=== PATIENT | female | born 1960 | race Caucasian/White ===

== ENCOUNTER 2016-06-17 10:01 | Emergency (ER) | payer OTHER ==
[~2016-06-17] VITALS: Ht 162.6 cm; Wt 49.9 kg
[~2016-06-17 10:01] MED LIST: CLEOCIN HCL300 M1 PO; PERCOCET 5-3251 EACH PO
[2016-06-17 10:09] VITALS: BP 125/78
--- NOTE | 2016-06-17 10:40 | ED SKIN/ALLERGY COMPLAINT ---
History of Present Illness General Chief Complaint: Skin Rash/ Abcess Stated Complaint: RASH Source: patient Exam Limitations: no limitations Vital Signs & Intake/Output Vital Signs & Intake/Output Vital Signs Date Time Temp Pulse Resp B/P Pulse O2 O2 Flow FiO2 Ox Delivery Rate 06/17 1009 97.0 91 20 125/78 99 Room Air Room Air Allergies Coded Allergies: MDX - Penicillin (HIVES, THROAT TIGHTNESS 11/13/15) Reconcile Medications Clindamycin HCl (Cleocin HCl) 300 MG CAPSULE 1 CAP PO TID ABSCESS Methylprednisolone. (Medrol) 4 MG TAB.DS.PK 1 DP PO AD RASH 6 on day 1 then reduce by one tablet daily until gone Oxycodone HCl/Acetaminophen (Percocet 5-325 MG Tablet) 1 EACH TABLET 1 TAB PO Q6HR PRN PAIN Permethrin (Elimite) 5 % CREAM..G. 1 SUKUMAR TOP ONCE RASH CAN REAPPLY IN 2 WEEKS Triage Note: PT TO ED WITH C/O RASH TO BILATERAL ARMS AND TO UPPER ABD, STARTED 1 WEEK AGO, VERY ITCHY LAST NIGHT". "I WORK AT [employer], AND EVERYONE HAS THIS THE OTHER AIDES AND SOME OF THE PATIENTS". Triage Nurses Notes Reviewed? yes Onset: Gradual Duration: week(s): (1) Timing: no prior history Severity: moderate Severity Numbers: 6 Location: torso, extremities Possible Factors: ? 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 She reports pupil hour, similar rash and he thinks they caught it from a resident. Rash is itchy. Has been taking Benadryl with little relief. Denies any travel. Denies any new lotions, detergents. Denies any shortness of breath chest pain or palpitations. Denies any nausea or vomiting. (KEYON HIGH,YUVAL) Past History Travel History Traveled to [place] past 21 day No Medical History Any Pertinent Medical History? see below for history Neurological: NONE EENT: NONE Cardiovascular: NONE Respiratory: NONE Gastrointestinal: GERD, BOWEL OBSTRUCTION Hepatic: NONE Renal: NONE Musculoskeletal: NONE Psychiatric: NONE Endocrine: NONE Blood Disorders: NONE Cancer(s): NONE MANAGER CONTRACTING/Reproductive: NONE Surgical History Surgical History: none Psychosocial History What is your primary language Luxembourgish Tobacco Use: Current Daily Use Daily Tobacco Use Amount/Type: => 5 Cigarettes daily ETOH Use: denies use Illicit Drug Use: denies illicit drug use Family History Hx Contributory? No (YUVAL GAITAN) Review of Systems Review of Systems Constitutional: Reports: no symptoms. Comments Review of systems: See HPI, All other systems negative. Constitutional, no chills fever or weight loss HEENT: No visual changes no sore throat no congestion Cardiovascular: No chest pain ,palpitation Skin, no jaundice Respiratory: No dyspnea cough sputum or hemoptysis GI: No nausea no vomiting : No dysuria No hematuria Muscle skeletal: no back pain, no neck pain, Neurologic: No numbness no confusion Psych: No stress anxiety Immunology: No splenectomy or history of AIDS (YUVAL GAITAN) Physical Exam Physical Exam General Appearance: well developed/nourished, no apparent distress, alert, awake , comfortable Comments: Well-developed well-nourished person in no acute distress HEENT: Pupils equally round and reactive to light and accommodation. Nose is atraumatic. Pharynx normal. No swelling or edema. Neck: Normal inspection Back: Nontender Cardiovascular: Regular rate and rhythms no murmurs rubs or gallops, normal JVP Respiratory: Chest nontender. No respiratory distress.breath sounds clear to auscultation bilaterally Extremity: No edema Skin: Erythematous, raised, papular appearing rash, clustered on the flexor surfaces of the upper extremities and lower extremities. A few lesions noted on the lower trunk. Excoriations present. Nothing on the palms or soles. Nothing between the fingers. No edema associated with a rash. Neuro: Alert oriented x3 Skin: No appreciable rash on exposed skin, skin is warm and dry. Psych: Mood and affect is normal, memory and judgment is normal. (YUVAL GAITAN) Progress Differential Diagnosis: abscess/cellulitis, allergic reaction, anaphylaxis, contact dermatitis, shingles, scabies Plan of Care: Patient will be treated for nonspecific rash. Cannot exclude scabies. Especially since patient reports that other people at the alf have similar rash. Educated on washing clothing and bedding in hot water. She will be prescribed permethrin and prednisone. (YUVAL GAITAN) Departure Departure Time of Disposition: 1046 Disposition: HOME OR SELF CARE Condition: Stable Clinical Impression Primary Impression: Rash Referrals: ODESSA WHEELER APRN (PCP/Family) Additional Instructions: Follow-up with your primary care physician calling appointment. Take MEROL dosepak as prescribed to help with itch. Use cream as prescribed. Departure Forms: Customer Survey General Discharge Information Prescriptions: Current Visit Scripts Permethrin (Elimite) 1 SUKUMAR TOP ONCE #60 GM CAN REAPPLY IN 2 WEEKS Methylprednisolone. (Medrol) 1 DP PO AD #1 DP 6 on day 1 then reduce by one tablet daily until gone (YUVAL GAITAN) PA/[employer] Co-Sign Statement Statement: ED Attending supervision documentation- [] I saw and evaluated the patient. I have also reviewed all the pertinent lab results and diagnostic results. I agree with the findings and the plan of care as documented in the PA's/[employer]'s documentation. [X] I have reviewed the ED Record and agree with the PA's/[employer]'s documentation. [] Additions or exceptions (if any) to the PAs/[employer]'s note and plan are summarized below: [] (WINSTON DAWSON DO
[2016-06-17] MEDS ORDERED: MEDROL4 M2 PO (10:51)
[2016-06-17] MEDS ORDERED: ELIMITE60 GM TOP (10:51)
== END 2016-06-17 10:57 ==
LOC: ERH 10:01
DX: R21 Rash and other nonspecific skin eruption (principal)